=== PATIENT | female | born 1935 ===

== ENCOUNTER 2024-09-25 23:10 | Inpatient (IN) | payer MEDICARE, OTHER ==
[2024-09-26 00:25] VITALS: BMI 21.0
[2024-09-26 00:31] LABS: #Basophils 0.04 10x3/uL (0.0-0.2); %Basophils 0.6 % (0.0-1.0); %Lymphocytes 16.5 % (21.0-51.0); %Monocytes 9.6 % (0.0-10.0); Hematocrit 41.5 % (36.0-47.0); Hemoglobin 13.8 g/dL (12.0-16.0); Mean Corpuscular HGB CONC 33.3 g/dL (32.0-36.0); Mean Corpuscular Hemoglobin 32.5 pg (27.0-31.0); Mean Corpuscular Volume 97.6 fL (78.0-98.0); Mean Platelet Volume 9.8 fL (7.4-10.4); Platelet Count 148 10x3/uL (130-400); RBC Distribution Width 12.4 % (11.5-14.5); Red Blood Cell (RBC) Count 4.25 mill/uL (4.20-5.40)
[2024-09-26 00:48] LABS: ALT (SGPT) 24 U/L (8-55); AST (SGOT) 19 U/L (5-34); Albumin 3.4 g/dL (3.4-4.8); Alkaline Phosphatase 79 U/L (40-110); Anion Gap 14 mmol/L (10-20); BUN (Urea Nitrogen) 14 mg/dL (9.8-20.1); Bilirubin, Total 1.4 mg/dL (0.2-1.2); Calc. Creatinine Clearance 54 mL/min (70-130); Calcium 9.4 mg/dL (7.8-10.44); Carbon Dioxide 23 mmol/L (23-31); Chloride 98 mmol/L (98-107); Estimated GFR 79; Globulin 2.9 g/dL (2.4-3.5); Glucose 94 mg/dL (83-110); Potassium 3.3 mmol/L (3.5-5.1); Protein, Total 6.3 g/dL (5.8-8.1); Sodium 132 mmol/L (136-145)
[2024-09-26] MEDS ORDERED: Ondansetron PF 4 MG/2 ML Vial IVP PRN (00:50)
[2024-09-26] MEDS ORDERED: Acetaminophen 325 MG TAB PO PRN (00:50)
[2024-09-26] MEDS: cefTRIAXone\\ROCEPHIN 1 GM in Sodium Chloride 0.9% 100 ML IVPB SCH (01:46)
[2024-09-26] MEDS: Potassium Chloride 20 MEQ TAB PO SCH (01:46)
[2024-09-26] MEDS: Azithromycin 500 MG in Sodium Chloride 0.9% 250 ML 250 ML IVPB SCH (02:34)
[2024-09-26 05:23] LABS: Troponin I 0.195 ng/mL (< 0.028)
[2024-09-26] MEDS: Furosemide 40 MG (4 mL) VIAL SLOW IVP SCH (06:07)
[2024-09-26 07:54] LABS: Troponin I 0.169 ng/mL (< 0.028)
[2024-09-26] MEDS: Apixaban 5 MG TAB PO SCH (08:48)
[2024-09-26] MEDS: Metoprolol Tartrate 25 MG TAB PO SCH ×2 (08:48→21:24)
[2024-09-26] MEDS ORDERED: Heparin 5,000 UNITS/ML VIAL SC SCH (09:00)
[2024-09-27 04:10] LABS: #Basophils 0.04 10x3/uL (0.0-0.2); %Basophils 0.7 % (0.0-1.0); %Eosinophils 3.3 % (0.0-10.0); %Lymphocytes 20.9 % (21.0-51.0); %Monocytes 9.5 % (0.0-10.0); %Neutrophils 65.3 % (42.0-75.0); Hematocrit 41.5 % (36.0-47.0); Hemoglobin 14.1 g/dL (12.0-16.0); Mean Corpuscular Hemoglobin 33.1 pg (27.0-31.0); Mean Corpuscular Volume 97.4 fL (78.0-98.0); Mean Platelet Volume 10.3 fL (7.4-10.4); Platelet Count 165 10x3/uL (130-400); RBC Distribution Width 12.4 % (11.5-14.5); Red Blood Cell (RBC) Count 4.26 mill/uL (4.20-5.40)
[2024-09-27 04:40] LABS: Anion Gap 13 mmol/L (10-20); BUN (Urea Nitrogen) 15 mg/dL (9.8-20.1); Calc. Creatinine Clearance 53 mL/min (70-130); Calcium 9.5 mg/dL (7.8-10.44); Carbon Dioxide 25 mmol/L (23-31); Chloride 98 mmol/L (98-107); Estimated GFR 76; Glucose 101 mg/dL (83-110); Potassium 3.5 mmol/L (3.5-5.1); Sodium 132 mmol/L (136-145)
[2024-09-28] MEDS: Potassium Chloride 20 MEQ TAB PO SCH (11:11)
[2024-09-28 11:25] VITALS: BP 118/64; TEMP 96.8
[2024-09-29] MEDS ORDERED: Spironolactone 25 MG TAB PO SCH (08:00)
[2024-09-29] MEDS ORDERED: Furosemide 20 MG TAB PO SCH (09:00)
[2024-09-29] MEDS ORDERED: Losartan 25 MG TAB PO SCH (09:00)
== END 2024-09-28 12:13 | disposition home or self-care (01) | DRG 193 ==
LOC: 2NO 23:10
PROVIDERS: ADMIT Hospitalist; ATTEND Internal Medicine
DX: J18.9 Pneumonia, unspecified organism (principal); I50.23 Acute on chronic systolic (congestive) heart failure; J96.01 Acute respiratory failure with hypoxia; I24.89 Other forms of acute ischemic heart disease; E87.1 Hypo-osmolality and hyponatremia; I48.91 Unspecified atrial fibrillation; I11.0 Hypertensive heart disease with heart failure; E87.6 Hypokalemia; Z91.041 Radiographic dye allergy status; Z91.048 Other nonmedicinal substance allergy status; I25.10 Atherosclerotic heart disease of native coronary artery without angina pectoris; Z98.890 Other specified postprocedural states; Z95.1 Presence of aortocoronary bypass graft; Z79.899 Other long term (current) drug therapy; Z79.01 Long term (current) use of anticoagulants
CPT/HCPCS: 36415; 80048; 80053; 83880; 84484; 85025; 87040; 93306; J0456; J0696; J1940; J7050

== ENCOUNTER 2025-09-20 13:48 | Inpatient (IN) | payer MEDICARE, OTHER ==
[2025-09-20 17:28] VITALS: BMI 22.1
[2025-09-20] MEDS ORDERED: Guaifenesin DM 100-10/5 ML UDCUP PO PRN (20:08)
[2025-09-20] MEDS ORDERED: Calcium Carbonate 500 MG ChewTAB PO PRN (20:08)
[2025-09-20] MEDS ORDERED: Senokot S 8.6-50 MG TAB PO PRN (20:08)
[2025-09-20] MEDS ORDERED: Ondansetron PF 4 MG/2 ML Vial IVP PRN (20:08)
[2025-09-20] MEDS ORDERED: Melatonin 3 MG TAB PO PRN (20:08)
[2025-09-20] MEDS ORDERED: Rosuvastatin 5 MG TAB PO SCH (21:00)
[2025-09-20] MEDS: Amoxicillin/Potassium Clav 875 MG TAB PO SCH (21:06)
[2025-09-20] MEDS: Apixaban 5 MG TAB PO SCH (21:07)
[2025-09-20] MEDS: Metoprolol Tartrate 5 MG (5 mL) VIAL IVP SCH (21:07)
[2025-09-20] MEDS: valACYclovir 500 MG TAB PO SCH (21:07)
[2025-09-20] MEDS: Furosemide 20 MG TAB PO SCH (21:07)
[2025-09-20 21:28] LABS: Anion Gap 12 mmol/L (10-20); BUN (Urea Nitrogen) 12 mg/dL (9.8-20.1); CK (CPK) 17 U/L (29-168); Calc. Creatinine Clearance 55 mL/min (70-130); Calcium 10.2 mg/dL (7.8-10.44); Carbon Dioxide 28 mmol/L (23-31); Cardiac Risk 3.4 (Less than 4.5); Chloride 100 mmol/L (98-107); Cholesterol 124 mg/dl (< 200 Desired); Glucose 159 mg/dL (83-110); HDL Cholesterol 37 mg/dL (>60 Neg Risk); LDL Cholesterol, Calculated 73 mg/dL; Magnesium 1.8 mg/dL (1.6-2.6); Potassium 3.7 mmol/L (3.5-5.1); Sodium 136 mmol/L (136-145); Triglycerides 72 mg/dL (Less than 150)
[2025-09-20 22:57] LABS: MONO NEGATIVE CONTROL ZONE White (Negative) (White); MONO POSITIVE CONTROL Pink Line (Positive) (PINK/RED); Mononucleosis NEGATIVE (NEGATIVE)
[2025-09-21 00:52] LABS: Hep A IgM AB NONREACTIVE (NonReactive); Hep A IgM S/CO 0.17 S/CO (0-0.79); Hep B Core IgM Index 0.08 S/CO (0-0.79); Hep B Surf Ag NONREACTIVE S/CO (NonReactive); Hep C IgG Ab NONREACTIVE S/CO (NonReactive); Hep C Index 0.07 S/CO (0-0.79)
[2025-09-21] MEDS: Acetaminophen 325 MG TAB PO PRN (02:35)
[2025-09-21 04:13] LABS: Bacteria/HPF None Seen HPF (None Seen); Glucose, Urine (Dipstick) Normal (Negative); Leukocyte Negative Leu/uL (Negative); Protein, Urine (Dipstick) Negative (Neg-Trace); RBC/HPF 0-3 HPF (0-3); Specific Gravity, Urine 1.005 (1.002-1.036); WBC/HPF 0-3 HPF (0-3)
[2025-09-21 04:14] LABS: #Basophils 0.05 10x3/uL (0.0-0.2); #Eosinophils 0.18 10x3/uL (0.0-0.7); #Monocytes 0.43 10x3/uL (0.11-0.59); #Neutrophils 3.20 10x3/uL (1.40-6.50); %Basophils 1.0 % (0.0-1.0); %Eosinophils 3.7 % (0.0-10.0); %Lymphocytes 20.8 % (21.0-51.0); %Monocytes 8.8 % (0.0-10.0); %Neutrophils 65.3 % (42.0-75.0); Hematocrit 37.0 % (36.0-47.0); Hemoglobin 12.2 g/dL (12.0-16.0); Mean Corpuscular Hemoglobin 32.4 pg (27.0-31.0); Mean Corpuscular Volume 98.1 fL (78.0-98.0); Platelet Count 260 10x3/uL (130-400); Red Blood Cell (RBC) Count 3.77 mill/uL (4.20-5.40); White Blood Cell (WBC) Count 4.90 10x3/uL (4.8-10.8)
[2025-09-21 04:28] LABS: Anion Gap 13 mmol/L (10-20); BUN (Urea Nitrogen) 12 mg/dL (9.8-20.1); Calc. Creatinine Clearance 64 mL/min (70-130); Calcium 9.7 mg/dL (7.8-10.44); Carbon Dioxide 26 mmol/L (23-31); Chloride 101 mmol/L (98-107); Glucose 91 mg/dL (83-110); Potassium 3.6 mmol/L (3.5-5.1); Sodium 136 mmol/L (136-145)
[2025-09-21 04:32] LABS: ALT (SGPT) 109 U/L (Less than 34); AST (SGOT) 55 U/L (11-34); Albumin 3.0 g/dL (3.1-4.5); Alkaline Phosphatase 105 U/L (40-110); Bilirubin, Direct 0.2 mg/dL (0.1-0.3); Bilirubin, Total 0.4 mg/dL (0.3-1.2)
[2025-09-21] MEDS ORDERED: Metoprolol Succinate XL 25 MG ER.TAB PO SCH (09:00)
[2025-09-21] MEDS: Pantoprazole 40 MG DR.TAB PO SCH (10:51)
[2025-09-21] MEDS: Metoprolol Succinate XL 25 MG ER.TAB PO SCH (10:52)
[2025-09-21] MEDS: Furosemide 20 MG TAB PO SCH (10:52)
[2025-09-21] MEDS: Losartan 25 MG TAB PO SCH ×2 (10:53→23:40)
[2025-09-21] MEDS: Aspirin 81 mg Enteric Coated Tablet PO SCH (10:53)
[2025-09-21] MEDS: Spironolactone 25 MG TAB PO SCH (11:00)
[2025-09-21] MEDS: Amiodarone 200 MG TAB PO SCH (14:52)
[2025-09-21] MEDS ORDERED: Apixaban 5 MG TAB PO SCH (21:00)
[2025-09-22 04:06] LABS: ALT (SGPT) 82 U/L (Less than 34); AST (SGOT) 43 U/L (11-34); Albumin 3.0 g/dL (3.1-4.5); Alkaline Phosphatase 95 U/L (40-110); Anion Gap 13 mmol/L (10-20); BUN (Urea Nitrogen) 10 mg/dL (9.8-20.1); Bilirubin, Total 0.5 mg/dL (0.3-1.2); Calc. Creatinine Clearance 52 mL/min (70-130); Calcium 9.7 mg/dL (7.8-10.44); Carbon Dioxide 25 mmol/L (23-31); Chloride 101 mmol/L (98-107); Globulin 2.5 g/dL (2.4-3.5); Glucose 90 mg/dL (83-110); Potassium 4.4 mmol/L (3.5-5.1); Sodium 135 mmol/L (136-145)
[2025-09-22 16:45] VITALS: BP 150/90; TEMP 97.7
[2025-09-22] MEDS ORDERED: Amiodarone 200 MG TAB PO SCH (21:00)
[2025-09-23] MEDS ORDERED: Amiodarone 200 MG TAB PO SCH (09:00)
== END 2025-09-22 17:23 | disposition home or self-care (01) | DRG 308 ==
LOC: INTOOBSV 13:48 → PCU 13:48 → OBSVTOIN 09-21 13:44
PROVIDERS: ADMIT Internal Medicine; ATTEND Internal Medicine
PROC: 4B02XSZ Measurement of Cardiac Pacemaker, External Approach (ICD-10-PCS; principal; 2025-09-21)
DX: I48.21 Permanent atrial fibrillation (principal); I50.23 Acute on chronic systolic (congestive) heart failure; I49.5 Sick sinus syndrome; E78.5 Hyperlipidemia, unspecified; I11.0 Hypertensive heart disease with heart failure; B02.9 Zoster without complications; I25.10 Atherosclerotic heart disease of native coronary artery without angina pectoris; Z95.1 Presence of aortocoronary bypass graft; Z91.041 Radiographic dye allergy status; Z91.048 Other nonmedicinal substance allergy status; Z91.09 Other allergy status, other than to drugs and biological substances; Z88.8 Allergy status to other drugs, medicaments and biological substances; Z79.899 Other long term (current) drug therapy; Z79.82 Long term (current) use of aspirin; Z85.038 Personal history of other malignant neoplasm of large intestine; Z85.3 Personal history of malignant neoplasm of breast; Z85.828 Personal history of other malignant neoplasm of skin; Z98.890 Other specified postprocedural states; Z95.0 Presence of cardiac pacemaker
CPT/HCPCS: 36415; 71045; 80048; 80053; 80061; 80074; 80076; 81001; 82550; 83735; 83880; 84443; 84484; 85025; 86308; 87798; 93306